=== PATIENT | male | born 1975 | race Caucasian/White ===

== ENCOUNTER 2021-08-08 13:26 | Emergency (ER) | payer OTHER, SELFPAY ==
[2021-08-08 13:30] VITALS: BMI 22.5
--- NOTE | 2021-08-08 13:48 | XR_ITS ---
WS: [id number] Exam: XR chest 1V portable [id number] Date/Time of Exam: 08/08/2021 2:00 PM Reason For Exam: dyspnea/cough No priors. Findings: The lungs are clear and fully expanded. Costophrenic angles are sharp. No infiltrates. Bronchovascula r relief appears normal. Cardiac silhouette is unremarkable. Bony elements are intact. XR/XR chest 1V portable [id number] IMPRESSION: Unremarkable chest radiograph.
--- NOTE | 2021-08-08 13:48 | ECG_ITS ---
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 Measurements Intervals [place] Rate: 73 P: 60 AR: 168 QRS: 56 QRSD: 73 T: 55 QT: 360 QTc: 397 Interpretive Statements SINUS RHYTHM No previous ECG available for comparison Electronically Signed On 08-08-2021 23:48:31 CDT by Eugenie Lu M.D. [id number]
[2021-08-08 13:50] VITALS: BP 132/76; PULSE 71; RESP 16; TEMP 36.9; O2SAT 98
[2021-08-08 14:23] LABS: Basophils % 0.2 %; Eosinophils % 0.3 %; Hematocrit 46.2 % (42.0-52.0); Hemoglobin 15.5 g/dL (11.7-16.6); Lymphocytes # 1.1 10^3/uL (0.8-4.8); Lymphocytes % 11.4 %; Mean Corpuscular HGB Conc 33.5 g/dL (30.0-36.0); Mean Corpuscular Hemoglobin 30.8 pg (28.0-34.0); Mean Corpuscular Volume 91.7 fl (80-94); Mean Platelet Volume 8.9 fL (7.4-10.4); Monocytes # 0.3 10^3/uL (0.2-0.9); Monocytes % 3.3 %; Neutrophils # 8.29 10^3/uL (1.8-7.7); Neutrophils % 84.4 %; Nucleated Red Blood Cells % 0 %; Platelet Count 299 10^3/cmm (130-400); Red Blood Count 5.04 10^6/uL (4.1-5.3); White Blood Count 9.8 10^3/uL (4.0-10.0)
--- NOTE | 2021-08-08 14:37 | ED_ITS ---
HPI - Allergic Reaction General: Chief complaint: Allergic Reaction Stated complaint: ALLERGIC RXN Time Seen by Provider: 08/08/21 13:32 History of Present Illness: HPI narrative: 46-year-old male presents emergency room complaining of redness and burning sensation bilaterally in the axilla. Began earlier today. There is some desquamation of the skin peeling as he describes it. He denies any difficulty with breathing. He felt some tightness in his chest and dizziness earlier but that has resolved. He received some Benadryl and Solu-Medrol in route. Onset (ago): hour(s) Associated symptoms: Reports rash; Deny abdominal pain, difficulty breathing, dysphagia, dizziness, facial swelling, hoarseness, itching, lip swelling, nausea, tongue swelling or vomiting Severity: mild Treatment prior to arrival: benadryl and steroids Previous Allergic Reaction History: none Review of Systems Const: Denies: fever(s), chills, body aches, change in appetite, fatigue or malaise ENMT: Denies: hoarseness Card: Denies: chest pain, edema, dyspnea on exertion or orthopnea Resp: Denies: dyspnea, productive cough or non-productive cough GI: Denies: abdominal pain, nausea, vomiting or dysphagia : Denies: flank pain, dysuria, urinary frequency or urinary urgency Skin/Breast: Denies: rash or pruritus Neuro: Denies: dizziness All/Imm: Denies: tongue swelling or facial swelling Physical Exam Const: COMMON NORMALS: no acute distress GENERAL APPEARANCE: cooperative and comfortable ORIENTATION/CONSCIOUSNESS: Yes awake, Yes oriented to person, Yes oriented to place and Yes oriented to time HENMT: COMMON NORMALS: normocephalic, atraumatic and hearing grossly normal bilaterally HEAD & SCALP: normocephalic and atraumatic Neck/C-Spine: COMMON NORMALS: no JVD Resp: COMMON NORMALS: normal respiratory effort, No retractions, No use of accessory muscles and clear to auscultation bilaterally AUSCULTATION: clear to auscultation bilaterally Cardio: COMMON NORMALS: no JVD, regular rate, regular rhythm and No murmurs present (Cardio) RATE: regular rate RHYTHM: regular rhythm GI: COMMON NORMALS: Soft to palpation and No hepatosplenomegaly present AUSCULTATION: Yes normoactive bowel sounds PALPATION: Yes Soft to palpation, No Tenderness to palpation present (GI), No Guarding due to palpation present (GI) and Yes No hepatosplenomegaly present Extremity: COMMON NORMALS: normal to inspection, capillary refill normal, no clubbing, cyanosis or edema, no calf tenderness and no pedal edema Neuro: SENSORIUM/ORIENTATION: Yes oriented to person, Yes oriented to place and Yes oriented to time Skin: OTHER: Mild rash on the arms extending around into the back. There is some desquamation in the axillary areas it is tender and pruritic. No urticarial wheal and flare. Course Vital Signs: Vital signs: Vital Signs Temperature 98.4 F 08/08/21 13:50 Pulse Rate 71 08/08/21 13:50 Respiratory Rate 16 08/08/21 13:50 Blood Pressure 132/76 08/08/21 13:50 Pulse Oximetry 99 08/08/21 15:10 MDM - Allergic Reaction MDM Narrative: Medical decision making narrative: Reviewed labs with the patient. Recommend starting on Medrol Dosepak.We also written him for a prescription for trimethoprim sulfamethoxazole however at the time of signing the note of some mild and dropped off of the EMR it is present on the discharge paperwork that the patient was given. Recommend that he follow-up with his primary care doctor within the next 6 to 7 days or return to emergency room as any worsening symptoms. Can use Benadryl [id number] as needed for symptom relief of itching. Lab Data: Labs: Lab Results 08/08/21 08/08/21 14:14 14:14 WBC 9.8 10^3/uL 10^3/ uL (4.0-10.0) RBC 5.04 10^6/uL 10^6 /uL (4.1-5.3) Hgb 15.5 g/dL g/dL (11.7-16.6) Hct 46.2 % % (42.0-52.0) MCV 91.7 fl fl (80-94) MCH 30.8 pg pg (28.0-34.0) MCHC 33.5 g/dL g/dL (30.0-36.0) RDW 12.0 % L % (12.1-15.1) Plt Count 299 10^3/cmm 10^3 /cmm (130-400) MPV 8.9 fL fL (7.4-10.4) Neut % (Auto) 84.4 % % Lymph % (Auto) 11.4 % % Carson % (Auto) 3.3 % % Eos % (Auto) 0.3 % % Baso % (Auto) 0.2 % % Neut # (Auto) 8.29 10^3/uL H 10 ^3/uL (1.8-7.7) Lymph # (Auto) 1.1 10^3/uL 10^3/ uL (0.8-4.8) Carson # (Auto) 0.3 10^3/uL 10^3/ uL (0.2-0.9) Eos # (Auto) 0.0 10^3/uL 10^3/ uL (0.0-0.8) Baso # (Auto) 0.0 10^3/uL 10^3/ uL (0.0-0.1) Nucleated RBC % (a uto) 0 % % Nucleated RBCs # 0.0 /100WBC /100W BC Sodium 141 mmol/L mmol/L (136-145) Potassium 4.0 mmol/L mmol/L (3.5-5.1) Chloride 103 mmol/L mmol/L (98-107) Carbon Dioxide 27 mmol/L mmol/L (22-29) Anion Gap 15.0 (5-19) BUN 14 mg/dL mg/dL (6-20) Creatinine 0.8 mg/dL mg/dL (0.7-1.2) GFR Calculation 104.1 mL/min mL/m in (90-130) Glucose 112 mg/dL mg/dL (65-115) Calculated Osmolal ity 293 mOsm/kg mOsm/ kg (285-295) Calcium 9.9 mg/dL mg/dL (8.5-10.5) Discharge Plan Discharge Patient Disposition: Home Clinical Impression: Staphylococcal scalded skin syndrome Condition: Stable Prescriptions: New Medrol (Leeroy) 4 mg tablets,dose pack See Rx Instructions .ROUTE .COMPLEX Qty: 21 RF: 0 Discharge Orders: Discharge ED (Routine); Ordered 08/08/21 Ordered By: Rodrick Araujo Discharge Diet: Usual diet Discharge Activity: Resume usual activity Patient Instructions: Opioid Safety Activity Restrictions/Additional Instructions: Follow-up with your primary care doctor the next 5 to 7 days return to emergency room for any worsening or change can also use as needed Benadryl [id number]. Coding Level of Care Code ED Lifestyle Consultant for Radha Fwd Exam Detailed
[2021-08-08 14:42] LABS: Blood Urea Nitrogen 14 mg/dL (6-20); Calcium 9.9 mg/dL (8.5-10.5); Carbon Dioxide 27 mmol/L (22-29); Chloride 103 mmol/L (98-107); Glomerular Filtration Rate 104.1 mL/min (90-130); Glucose 112 mg/dL (65-115); Osmolality Calculated 293 mOsm/kg (285-295); Sodium 141 mmol/L (136-145)
[2021-08-08 15:10] VITALS: O2SAT 99
== END 2021-08-08 15:09 | disposition home or self-care (01) ==
LOC: ER 15:24
PROVIDERS: Emergency Provider Family Medicine
DX: L00 Staphylococcal scalded skin syndrome (principal)
CPT/HCPCS: 71045; 80048; 85025; 93005; 99283